=== PATIENT | male | born 1950 | race Caucasian/White ===

== ENCOUNTER 2017-11-01 17:15 | Inpatient (IN) ==
[2017-11-01] MEDS ORDERED: FUROSEMIDE 100 MG/10 ML VIAL IV STA (17:20)
[2017-11-01] MEDS ORDERED: methylPREDNISolone SOD SUC 125 MG/2 ML VIAL IV STA (17:20)
[2017-11-01] MEDS ORDERED: cefTRIAXone 1,000 MG in SODIUM CHLORIDE 0.9% 100 ML IV STA (17:20)
[2017-11-01] MEDS ORDERED: ALBUTEROL NEB SOLN 5 MG/ML 20 ML/BOTTLE RESP TX SCH (17:30)
[2017-11-01] MEDS ORDERED: cefTRIAXone 1,000 MG VIAL ONE (17:48)
[2017-11-01] MEDS ORDERED: FUROSEMIDE 20 MG/2 ML VIAL ONE (17:48)
[2017-11-01] MEDS ORDERED: methylPREDNISolone SOD SUC 125 MG/2 ML VIAL ONE (17:48)
[2017-11-01 17:55] LABS: Basophils % 0.1 % (0.0-0.8); Hemoglobin 17.1 GM/DL (14.0-18.0); Immature Granulocytes % 0.7 %; Immature Granulocytes Absolute 0.07 #; Lymphocytes # 0.5 10*3/uL (1.4-4.0); Lymphocytes % 4.6 % (21.2-54.2); Mean Corpuscular HGB Conc 33.5 GM/DL (32-36); Mean Corpuscular Hemoglobin 33 PG (27-34); Mean Platelet Volume 10.2 FL (9.6-12.0); Monocytes # 0.7 10*3/uL (0.11-0.8); Monocytes % 6.8 % (1.7-12.7); Neutrophils # 9.2 10*3/uL (1.4-7.4); Neutrophils % 87.8 % (38.7-73.9); Platelet Count 142 T/CUMM (130-400); Red Blood Count 5.15 MC/CUMM (3.8-5.5); White Blood Count 10.5 T/CUMM (4-12)
[2017-11-01 18:03] LABS: ABG Base Excess -0.2 MMOL/L (-2.5-2.5); ABG HCO3 24.4 MMOL/L (20-26); ABG Oxygen Saturation 94.1 % (95-100); ABG PCO2 39.6 MM HG (35-48); ABG PH 7.407 (7.35-7.45); ABG PO2 76.1 MM HG (80-95); ABG TCO2 25.6 MMOL/L (23-27)
[2017-11-01 18:04] LABS: PT Patient Result 10.5 SECS
[2017-11-01 18:08] LABS: Alanine Aminotransferase 26 U/L (16-61); Albumin 4.2 G/DL (3.4-5.0); Alkaline Phosphatase 73 U/L (45-117); Aspartate Amino Transferase 37 U/L (0-37); Bilirubin,Total < 0.39 MG/DL (0.2-1.0); Blood Urea Nitrogen 14 MG/DL (7-18); Calcium 8.7 MG/DL (8.5-10.1); Glucose 137 MG/DL (74-106); Osmolality,Calculated 272.1 MOS/KG (273-304); Potassium 3.9 MMOL/L (3.5-5.1); Sodium 135 MMOL/L (136-145); Total Protein 8.5 G/DL (6.4-8.3); Troponin I Only < 0.015 NG/ML (0.00-0.045)
[2017-11-01 18:51] LABS: Lymphocytes 3 % (20-55); Platelet Estimate Adequate; Segmented Neutrophils 90 % (50-85); Total Cells Counted 100
[2017-11-01] MEDS ORDERED: ALBUTEROL 2.5 MG/3 ML NEB RESP TX PRN (20:46)
[2017-11-01] MEDS ORDERED: guaiFENesin/DM ER 600-30 MG TABLET PO PRN (20:54)
[2017-11-01] MEDS ORDERED: ONDANSETRON 4 MG/2 ML VIAL IV PRN (20:54)
[2017-11-01] MEDS ORDERED: MORPHINE 4 MG/1 ML VIAL IV PRN (20:54)
[2017-11-01] MEDS ORDERED: ACETAMINOPHEN 325 MG TABLET PO PRN (20:54)
[2017-11-01] MEDS ORDERED: NICOTINE 21 MG/24 HR PATCH TRANSDERM PRN (20:54)
[2017-11-01 21:47] LABS: Lactic Acid 4.9 MMOL/L (0.4-2.0)
[2017-11-01] MEDS: SODIUM CHLORIDE 0.9% 1,000 ML IV SCH (22:17)
[2017-11-01] MEDS: methylPREDNISolone SOD SUC 40 MG/1 ML VIAL IV SCH (23:43)
[2017-11-02] MEDS: AZITHROMYCIN INJ 500 MG in SODIUM CHLORIDE 0.9% 250 ML IV SCH (00:16)
[2017-11-02 00:41] LABS: Basophils % 0.1 % (0.0-0.8); Hemoglobin 16.4 GM/DL (14.0-18.0); Immature Granulocytes % 0.7 %; Immature Granulocytes Absolute 0.06 #; Lymphocytes # 0.4 10*3/uL (1.4-4.0); Lymphocytes % 4.5 % (21.2-54.2); Mean Corpuscular HGB Conc 34.9 GM/DL (32-36); Mean Corpuscular Hemoglobin 34 PG (27-34); Mean Corpuscular Volume 96.5 FL (87-102); Monocytes # 0.3 10*3/uL (0.11-0.8); Monocytes % 3.2 % (1.7-12.7); Neutrophils # 8.1 10*3/uL (1.4-7.4); Neutrophils % 91.5 % (38.7-73.9); Platelet Count 140 T/CUMM (130-400); Red Blood Count 4.87 MC/CUMM (3.8-5.5); Red Cell Distribution Width 13.2 % (9.3-17.3); White Blood Count 8.9 T/CUMM (4-12)
[2017-11-02] MEDS: ALBUTEROL/IPRATROPIUM 3 ML NEB RESP TX SCH ×4 (01:03→19:14)
[2017-11-02 01:14] LABS: Band Neutrophils 5 % (0-10); Calcium 8.5 MG/DL (8.5-10.1); Lymphocytes 3 % (20-55); Platelet Estimate Normal; Potassium 4.2 MMOL/L (3.5-5.1); Segmented Neutrophils 89 % (50-85); Total Cells Counted 100
[2017-11-02 01:15] LABS: Macrocytosis 2+
[2017-11-02] MEDS: methylPREDNISolone SOD SUC 40 MG/1 ML VIAL IV SCH ×4 (04:48→23:05)
[2017-11-02] MEDS: ENOXAPARIN 40 MG/0.4 ML SYRINGE SUBCUT SCH (09:15)
[2017-11-02] MEDS: PANTOPRAZOLE 40 MG TABLET PO SCH (09:16)
[2017-11-02] MEDS ORDERED: SODIUM CHLORIDE 0.9% 2,500 ML IV ONE (11:00)
[2017-11-02] MEDS ORDERED: FUROSEMIDE 40 MG/4 ML VIAL IV ONE (13:40)
[2017-11-02] MEDS ORDERED: FUROSEMIDE 40 MG/4 ML VIAL ONE (13:43)
[2017-11-02] MEDS: cefTRIAXone 1,000 MG in SYRINGE 1 EACH IV SCH (16:43)
[2017-11-02] MEDS: SODIUM CHLORIDE 0.9% 1,000 ML IV SCH (16:57)
[2017-11-03] MEDS: ALBUTEROL/IPRATROPIUM 3 ML NEB RESP TX SCH ×4 (00:26→19:42)
[2017-11-03] MEDS: AZITHROMYCIN INJ 500 MG in SODIUM CHLORIDE 0.9% 250 ML IV SCH (01:15)
[2017-11-03] MEDS: methylPREDNISolone SOD SUC 40 MG/1 ML VIAL IV SCH ×4 (05:40→21:06)
[2017-11-03 06:07] LABS: Basophils % 0.1 % (0.0-0.8); Hematocrit 46.3 VOL% (42.0-52.0); Hemoglobin 16.1 GM/DL (14.0-18.0); Immature Granulocytes % 0.4 %; Immature Granulocytes Absolute 0.06 #; Lymphocytes # 0.7 10*3/uL (1.4-4.0); Lymphocytes % 4.9 % (21.2-54.2); Mean Corpuscular HGB Conc 34.8 GM/DL (32-36); Mean Corpuscular Hemoglobin 34 PG (27-34); Mean Corpuscular Volume 97.9 FL (87-102); Mean Platelet Volume 10.1 FL (9.6-12.0); Monocytes # 0.6 10*3/uL (0.11-0.8); Neutrophils # 12.3 10*3/uL (1.4-7.4); Neutrophils % 90.6 % (38.7-73.9); Platelet Count 150 T/CUMM (130-400); Red Blood Count 4.73 MC/CUMM (3.8-5.5); Red Cell Distribution Width 13.2 % (9.3-17.3); White Blood Count 13.6 T/CUMM (4-12)
[2017-11-03 06:29] LABS: Giant Platelets Few; Hypochromasia 1+; Lymphocytes 8 % (20-55); Ovalocytes Slight; Platelet Estimate Normal; Segmented Neutrophils 85 % (50-85); Total Cells Counted 100
[2017-11-03 06:30] LABS: Macrocytosis Slight
[2017-11-03 06:33] LABS: Calcium 8.4 MG/DL (8.5-10.1); Osmolality,Calculated 284.4 MOS/KG (273-304); Potassium 4.3 MMOL/L (3.5-5.1)
[2017-11-03 06:34] LABS: Lactic Acid 1.6 MMOL/L (0.4-2.0)
[2017-11-03] MEDS: amLODIPine 5 MG TABLET PO SCH (09:27)
[2017-11-03] MEDS: ENOXAPARIN 40 MG/0.4 ML SYRINGE SUBCUT SCH (09:27)
[2017-11-03] MEDS: PANTOPRAZOLE 40 MG TABLET PO SCH (09:27)
[2017-11-03] MEDS ORDERED: AMINOPHYLLINE 250 MG in SODIUM CHLORIDE 0.9% 100 ML IV ONE (11:00)
[2017-11-03] MEDS: MONTELUKAST 10 MG TABLET PO SCH (11:26)
[2017-11-03] MEDS: AMINOPHYLLINE 500 MG in SODIUM CHLORIDE 0.9% 480 ML IV SCH (14:42)
[2017-11-03] MEDS: ALBUTEROL 0.4 MG/ML 30 ML/BOTTLE PO SCH ×2 (14:43→21:06)
[2017-11-03] MEDS: cefTRIAXone 1,000 MG in SYRINGE 1 EACH IV SCH (21:06)
[2017-11-04] MEDS: ALBUTEROL/IPRATROPIUM 3 ML NEB RESP TX SCH ×4 (01:14→19:46)
[2017-11-04] MEDS: methylPREDNISolone SOD SUC 40 MG/1 ML VIAL IV SCH ×4 (03:07→21:19)
[2017-11-04] MEDS: AZITHROMYCIN INJ 500 MG in SODIUM CHLORIDE 0.9% 250 ML IV SCH (05:34)
[2017-11-04] MEDS: ALBUTEROL 0.4 MG/ML 30 ML/BOTTLE PO SCH ×3 (05:34→21:19)
[2017-11-04 06:06] LABS: Basophils % 0.2 % (0.0-0.8); Hematocrit 48.2 VOL% (42.0-52.0); Hemoglobin 16.4 GM/DL (14.0-18.0); Immature Granulocytes % 0.6 %; Immature Granulocytes Absolute 0.07 #; Lymphocytes # 0.6 10*3/uL (1.4-4.0); Mean Corpuscular Hemoglobin 33 PG (27-34); Mean Corpuscular Volume 97.8 FL (87-102); Mean Platelet Volume 9.6 FL (9.6-12.0); Monocytes # 0.5 10*3/uL (0.11-0.8); Monocytes % 3.8 % (1.7-12.7); Neutrophils # 11.3 10*3/uL (1.4-7.4); Neutrophils % 90.4 % (38.7-73.9); Platelet Count 161 T/CUMM (130-400); Red Blood Count 4.93 MC/CUMM (3.8-5.5); Red Cell Distribution Width 13.1 % (9.3-17.3); White Blood Count 12.5 T/CUMM (4-12)
[2017-11-04 06:30] LABS: Band Neutrophils 1 % (0-10); Giant Platelets Few; Hypochromasia Slight; Lymphocytes 6 % (20-55); Macrocytosis Slight; Ovalocytes Slight; Platelet Estimate Normal; Segmented Neutrophils 88 % (50-85); Total Cells Counted 100
[2017-11-04 06:43] LABS: Alanine Aminotransferase 40 U/L (16-61); Albumin 3.5 G/DL (3.4-5.0); Alkaline Phosphatase 58 U/L (45-117); Aspartate Amino Transferase 29 U/L (0-37); Bilirubin,Total < 0.39 MG/DL (0.2-1.0); Blood Urea Nitrogen 22 MG/DL (7-18); Calcium 8.6 MG/DL (8.5-10.1); Glucose 134 MG/DL (74-106); Osmolality,Calculated 279.7 MOS/KG (273-304); Potassium 4.1 MMOL/L (3.5-5.1); Sodium 138 MMOL/L (136-145); Total Protein 7.1 G/DL (6.4-8.3)
[2017-11-04] MEDS: ENOXAPARIN 40 MG/0.4 ML SYRINGE SUBCUT SCH (08:45)
[2017-11-04] MEDS: amLODIPine 5 MG TABLET PO SCH (08:46)
[2017-11-04] MEDS: PANTOPRAZOLE 40 MG TABLET PO SCH (08:46)
[2017-11-04] MEDS: MONTELUKAST 10 MG TABLET PO SCH (08:46)
[2017-11-04] MEDS: AMINOPHYLLINE 500 MG in SODIUM CHLORIDE 0.9% 480 ML IV SCH (13:30)
[2017-11-04] MEDS ORDERED: LACTULOSE 20 GM/30 ML UDCUP PO ONE (14:00)
[2017-11-04] MEDS ORDERED: MAGNESIUM HYDROXIDE SUSP 30 ML UDCUP PO ONE (14:00)
[2017-11-04] MEDS ORDERED: BISACODYL 5 MG TABLET PO ONE (14:00)
[2017-11-04] MEDS: cefTRIAXone 1,000 MG in SYRINGE 1 EACH IV SCH (21:19)
[2017-11-05] MEDS: ALBUTEROL/IPRATROPIUM 3 ML NEB RESP TX SCH ×4 (00:31→19:30)
[2017-11-05] MEDS: methylPREDNISolone SOD SUC 40 MG/1 ML VIAL IV SCH ×4 (03:51→21:08)
[2017-11-05] MEDS: ALBUTEROL 0.4 MG/ML 30 ML/BOTTLE PO SCH ×3 (05:48→22:15)
[2017-11-05] MEDS: AMINOPHYLLINE 500 MG in SODIUM CHLORIDE 0.9% 480 ML IV SCH (06:05)
[2017-11-05] MEDS: ENOXAPARIN 40 MG/0.4 ML SYRINGE SUBCUT SCH (09:09)
[2017-11-05] MEDS: AZITHROMYCIN INJ 500 MG in SODIUM CHLORIDE 0.9% 250 ML IV SCH (09:09)
[2017-11-05] MEDS: amLODIPine 5 MG TABLET PO SCH (09:09)
[2017-11-05] MEDS: PANTOPRAZOLE 40 MG TABLET PO SCH (09:09)
[2017-11-05] MEDS: MONTELUKAST 10 MG TABLET PO SCH (09:09)
[2017-11-05] MEDS: THEOPHYLLINE ER 300 MG TABLET PO SCH ×2 (11:19→17:12)
[2017-11-05] MEDS: cefTRIAXone 1,000 MG in SYRINGE 1 EACH IV SCH (21:06)
[2017-11-06] MEDS: ALBUTEROL/IPRATROPIUM 3 ML NEB RESP TX SCH ×4 (00:41→19:34)
[2017-11-06] MEDS: methylPREDNISolone SOD SUC 40 MG/1 ML VIAL IV SCH ×4 (03:18→20:47)
[2017-11-06] MEDS: ALBUTEROL 0.4 MG/ML 30 ML/BOTTLE PO SCH ×3 (06:14→21:59)
[2017-11-06 07:10] LABS: Basophils % 0.4 % (0.0-0.8); Hemoglobin 16.1 GM/DL (14.0-18.0); Immature Granulocytes % 2.2 %; Immature Granulocytes Absolute 0.23 #; Lymphocytes # 0.5 10*3/uL (1.4-4.0); Lymphocytes % 4.6 % (21.2-54.2); Mean Corpuscular HGB Conc 33.5 GM/DL (32-36); Mean Corpuscular Hemoglobin 33 PG (27-34); Mean Corpuscular Volume 99.4 FL (87-102); Mean Platelet Volume 9.7 FL (9.6-12.0); Monocytes # 0.4 10*3/uL (0.11-0.8); Monocytes % 3.9 % (1.7-12.7); Neutrophils # 9.4 10*3/uL (1.4-7.4); Neutrophils % 88.9 % (38.7-73.9); Platelet Count 177 T/CUMM (130-400); Red Blood Count 4.83 MC/CUMM (3.8-5.5); Red Cell Distribution Width 12.8 % (9.3-17.3); White Blood Count 10.6 T/CUMM (4-12)
[2017-11-06 07:31] LABS: Giant Platelets Few; Hypochromasia 1+; Lymphocytes 7 % (20-55); Platelet Estimate Normal; Segmented Neutrophils 89 % (50-85); Total Cells Counted 100
[2017-11-06 07:32] LABS: Macrocytosis Slight; Ovalocytes Slight
[2017-11-06 07:42] LABS: Albumin 3.3 G/DL (3.4-5.0); Bilirubin,Total 0.4 MG/DL (0.2-1.0); Calcium 8.4 MG/DL (8.5-10.1); Osmolality,Calculated 281.7 MOS/KG (273-304); Potassium 4.4 MMOL/L (3.5-5.1); Total Protein 6.7 G/DL (6.4-8.3)
[2017-11-06] MEDS: MONTELUKAST 10 MG TABLET PO SCH (08:04)
[2017-11-06] MEDS: THEOPHYLLINE ER 300 MG TABLET PO SCH ×2 (08:05→17:20)
[2017-11-06] MEDS: PANTOPRAZOLE 40 MG TABLET PO SCH (08:06)
[2017-11-06] MEDS: amLODIPine 5 MG TABLET PO SCH (08:06)
[2017-11-06] MEDS: ENOXAPARIN 40 MG/0.4 ML SYRINGE SUBCUT SCH (08:07)
[2017-11-06] MEDS: AZITHROMYCIN INJ 500 MG in SODIUM CHLORIDE 0.9% 250 ML IV SCH (09:41)
[2017-11-06] MEDS: CETIRIZINE 10 MG TABLET PO SCH (14:55)
[2017-11-06] MEDS: cefTRIAXone 1,000 MG in SYRINGE 1 EACH IV SCH (20:48)
[2017-11-07] MEDS: ALBUTEROL/IPRATROPIUM 3 ML NEB RESP TX SCH ×4 (00:33→19:01)
[2017-11-07] MEDS: methylPREDNISolone SOD SUC 40 MG/1 ML VIAL IV SCH ×4 (04:05→21:44)
[2017-11-07] MEDS: ALBUTEROL 0.4 MG/ML 30 ML/BOTTLE PO SCH ×3 (05:58→22:45)
[2017-11-07] MEDS: THEOPHYLLINE ER 300 MG TABLET PO SCH ×2 (08:47→16:00)
[2017-11-07] MEDS: ENOXAPARIN 40 MG/0.4 ML SYRINGE SUBCUT SCH (08:47)
[2017-11-07] MEDS: amLODIPine 5 MG TABLET PO SCH (08:47)
[2017-11-07] MEDS: PANTOPRAZOLE 40 MG TABLET PO SCH (08:47)
[2017-11-07] MEDS: CETIRIZINE 10 MG TABLET PO SCH (08:48)
[2017-11-07] MEDS: MONTELUKAST 10 MG TABLET PO SCH (08:48)
[2017-11-07] MEDS: AZITHROMYCIN 250 MG TABLET PO SCH (16:00)
[2017-11-08] MEDS: ALBUTEROL/IPRATROPIUM 3 ML NEB RESP TX SCH ×2 (00:27→06:59)
[2017-11-08] MEDS: methylPREDNISolone SOD SUC 40 MG/1 ML VIAL IV SCH ×2 (03:40→09:43)
[2017-11-08 08:22] VITALS: BP 142/79
[2017-11-08] MEDS: AZITHROMYCIN 250 MG TABLET PO SCH (09:43)
[2017-11-08] MEDS: PANTOPRAZOLE 40 MG TABLET PO SCH (09:44)
[2017-11-08] MEDS: amLODIPine 5 MG TABLET PO SCH (09:44)
[2017-11-08] MEDS: MONTELUKAST 10 MG TABLET PO SCH (09:44)
[2017-11-08] MEDS: CETIRIZINE 10 MG TABLET PO SCH (09:44)
[2017-11-08] MEDS: THEOPHYLLINE ER 300 MG TABLET PO SCH (09:44)
[2017-11-08] MEDS: ENOXAPARIN 40 MG/0.4 ML SYRINGE SUBCUT SCH (09:44)
== END 2017-11-08 12:29 | disposition home or self-care (01) | DRG 191 ==
LOC: EDUNIT# → EDBD → N.ED 17:15 → N.EDINP 20:44 → SUATTDRO 20:44 → N.2E 21:59
PROVIDERS: ATTEND Internal Medicine Infectious Disease